=== PATIENT | male | born 1975 | race Caucasian/White ===

== ENCOUNTER 2017-09-21 18:21 | Emergency (ER) | payer OTHER ==
[~2017-09-21] VITALS: Ht 170.2 cm; Wt 114.3 kg
[2017-09-21 18:24] VITALS: TEMP 36.8
[2017-09-21] MEDS ORDERED: SODIUM CHLORIDE 0.9% 1000ML 1,000 ML IV STA (18:36)
[2017-09-21] MEDS ORDERED: ONDANSETRON INJ 2 MG/ML 2 ML VIAL IV STA (18:36)
[2017-09-21 18:45] VITALS: Ht 170.2 cm; Wt 114.3 kg
[2017-09-21 18:51] LABS: BASO % 0.3 %; BASO ABS # 0.05 K/uL (0-0.2); EOS % 1.4 %; HEMATOCRIT 44.1 % (42-52); HEMOGLOBIN 15.6 g/dL (14.0-18.0); IG# 0.04 K/uL (0.00-0.02); LYMPH % 25.4 %; LYMPH ABS # 3.64 K/uL (1.2-3.4); MEAN CELL VOLUME 86.3 fL (80-100); MEAN CORPUSCULAR HEMOGLOBIN 30.5 pg (25-34); MEAN CORPUSCULAR HGB CONC 35.4 g/dl (32-36); MEAN PLATELET VOLUME 9.5 fL (7.4-10.4); MONO ABS # 0.71 K/uL (0.11-0.59); NEUT % 67.6 %; PLATELET COUNT 369 K/uL (130-400); RED CELL DISTRIBUTION WIDTH CV 13.7 % (11.5-14.5); RED CELL DISTRIBUTION WIDTH SD 42.7 fL (36.4-46.3); WHITE BLOOD COUNT 14.34 K/uL (4.8-10.8)
[2017-09-21 19:06] VITALS: O2SAT 98
--- NOTE | 2017-09-21 19:09 | DIAGNOSTIC IMAGING REPORT ---
ABD/PELVIS NO IV OR ORAL CONT CT DOSE: 1473.74 mGy.cm HISTORY: Pain flank pain TECHNIQUE: Multiaxial CT images of the abdomen and pelvis were performed without contrast. A dose lowering technique was utilized adhering to the principles of ALARA. COMPARISON STUDY: 09/18/2015 FINDINGS: Lung bases are clear. Liver spleen and pancreas are grossly unremarkable. No evidence for gallbladder distention. Left kidney is negative for hydronephrosis. There is an 8 x 14 mm calcification within the right renal pelvis. There is slight fullness of the right renal collecting system. There is no evidence for an obstructing calculus within the ureters. Bowel pattern is nonobstructive. Appendix is normal. IMPRESSION: 1. Minimally and/or nonobstructing calculus within the right renal pelvis measuring 8 x 14 mm. 2. Study of the abdomen and pelvis is otherwise negative. The above report was generated using voice recognition software. It may contain grammatical, syntax or spelling errors. Electronically signed by: Jerson Ojeda M.D. 09/21/2017 7:06 PM Dictated Date/Time: 09/21/2017 7:03 PM
[2017-09-21 19:22] LABS: ALBUMIN 3.9 gm/dl (3.4-5.0); ALKALINE PHOSPHATASE 100 U/L (45-117); ALT/SGPT 37 U/L (12-78); AST/SGOT 19 U/L (15-37); BLOOD UREA NITROGEN 17 mg/dl (7-18); CALCIUM 8.5 mg/dl (8.5-10.1); CARBON DIOXIDE 26 mmol/L (21-32); CREATININE 1.03 mg/dl (0.60-1.40); GLUCOSE 109 mg/dl (70-99); LIPASE 145 U/L (73-393); POTASSIUM 3.7 mmol/L (3.5-5.1); SODIUM 137 mmol/L (136-145); TOTAL PROTEIN 7.8 gm/dl (6.4-8.2)
[2017-09-21] MEDS ORDERED: TRAZ100T29 PO (19:32)
[2017-09-21] MEDS ORDERED: FURO-85 PO (19:32)
[2017-09-21] MEDS ORDERED: LISI-461 PO (19:32)
[2017-09-21] MEDS ORDERED: IBUP-103 PO (19:32)
[2017-09-21] MEDS ORDERED: VENL150C56 PO (19:32)
[2017-09-21] MEDS ORDERED: CEFDINIR 300 MG CAP PO STA (19:52)
--- NOTE | 2017-09-21 19:52 | DIAGNOSTIC IMAGING REPORT ---
CHEST ONE VIEW PORTABLE CLINICAL HISTORY: EVALUATE ALTERED MENTAL STATUS/WEAKNESS COMPARISON STUDY: No previous studies for comparison. FINDINGS: The bones soft tissues and hemidiaphragms are normal. The cardiomediastinal silhouette is normal. The lungs are clear. The pulmonary vasculature is normal. IMPRESSION: Negative chest. The above report was generated using voice recognition software. It may contain grammatical, syntax or spelling errors. Electronically signed by: Jerson Ojeda M.D. 09/21/2017 7:51 PM Dictated Date/Time: 09/21/2017 7:51 PM
[2017-09-21 19:53] VITALS: BP 145/90; PULSE 88; O2SAT 95
[2017-09-21] MEDS ORDERED: CEFD300C2 PO (20:00)
[2017-09-21] MEDS ORDERED: OMEP20CA9 PO (20:01)
--- NOTE | 2017-09-21 21:34 | EMERGENCY ROOM VISIT NOTE ---
History Report prepared by Juarez: Cata Smart Under the Supervision of: Dr. Troy Sheriff D.O. First contact with patient: 18:25 Chief Complaint: GI ASSESSMENT Stated Complaint: BLEEDING IN STOOL,STOMACH CRAMPS,TROUBLE URINATING History of Present Illness The patient is a 42 year old male who presents to the Emergency Room with complaints of an episode of hematochezia starting yesterday. The patient states that he has been having melena for the past 3 days. He reports that yesterday he started having hematochezia. He notes that he has had this before, but it was from hemorrhoids. The patient complains of back pain, difficulty urinating, dizziness, and abdominal pain. He notes that the pain is intermittently worse, but is always there. He notes that he occasionally takes Tylenol and Advil, but denies taking Ibuprofen. He notes that he took Pepto Bismol yesterday. He states that he has had a colonoscopy in the past that had polyps present. The patient denies the use of blood thinners and ever having a endoscopy done. Source of History: patient Onset: yesterday Position: abdomen Quality: other (hematochezia) Timing: other (episode) Associated Symptoms: + abdominal pain, + back pain, + melena, + urinary symptoms Note: The patient complains of dizziness. Review of Systems See HPI for pertinent positives & negatives. A total of 10 systems reviewed and were otherwise negative. Past Medical & Surgical Medical Problems: (1) Anxiety (2) CHF (congestive heart failure) (3) Depression (4) Diabetes (5) HTN (hypertension) (6) Panic disorder Family History Patient reports no known family medical history. Social History Smoking Status: Current Every Day Smoker Smokeless Tobacco Use: Yes Alcohol Use: occasionally Marital Status: Housing Status: lives with family Occupation Status: employed Current/Historical Medications Scheduled Cefdinir (Omnicef), 300 MG PO Q12H Furosemide (Lasix), 1 TAB PO DAILY Lisinopril (Zestril), 10 MG PO DAILY Omeprazole (Prilosec), 20 MG PO DAILY Trazodone Hcl (Trazodone), 100 MG PO HS Venlafaxine Hcl (Effexor Extended Rel), 150 MG PO DAILY Scheduled PRN Ibuprofen Tab (Advil), 400 MG PO TID PRN for Pain Allergies Coded Allergies: BEE STING (Unverified Allergy, Unknown, hives, , 09/02/17) Penicillins (Verified Allergy, Unknown, 09/02/17) Physical Exam Vital Signs Date Time Temp Pulse Resp B/P (MAP) Pulse Ox O2 Delivery O2 Flow Rate FiO2 09/21/17 19:53 88 18 145/90 95 Room Air 09/21/17 19:40 90 09/21/17 19:06 98 Room Air 09/21/17 19:06 98 Room Air 09/21/17 18:24 36.8 101 20 148/90 98 Room Air Physical Exam GENERAL: Patient is awake, alert, and in no acute distress. Patient is resting comfortably and showing no signs of anxiety EYES: The conjunctivae are clear. The pupils are round and reactive. EARS, NOSE, MOUTH AND THROAT: The nose is without any evidence of any deformity. Mucous membranes are moist. Tongue is midline NECK: The neck is nontender and supple. RESPIRATORY: Normal respiratory effort is noted. There is no evidence of wheezing rhonchi or rales to auscultation. CARDIOVASCULAR: Tachycardic rate and regular rhythm noted. No definite murmur noted to auscultation. GASTROINTESTINAL: The abdomen is soft. Bowel sounds are present in all quadrants. Abdomen is nontender. Rectal exam revealed light brown stool that was heme negative. BACK: No midline tenderness or or step-off noted range of motion in flexion extension as well as rotation no signs of muscle spasm noted. MUSCULOSKELETAL/EXTREMITIES: There is no evidence of gross deformity. Full range of motion is noted in the hips and shoulders. SKIN: There is no obvious evidence of any rash. There are no petechiae, pallor or cyanosis noted. Trace pedal edema. NEUROLOGIC: Patient is awake alert and oriented x3. Medical Decision & Procedures ER Provider Diagnostic Interpretation: Radiology results as stated below per my review and radiologist interpretation: CHEST ONE VIEW PORTABLE CLINICAL HISTORY: EVALUATE ALTERED MENTAL STATUS/WEAKNESS COMPARISON STUDY: No previous studies for comparison. FINDINGS: The bones soft tissues and hemidiaphragms are normal. The cardiomediastinal silhouette is normal. The lungs are clear. The pulmonary vasculature is normal. IMPRESSION: Negative chest. The above report was generated using voice recognition software. It may contain grammatical, syntax or spelling errors. Electronically signed by: Jerson Ojeda M.D. 09/21/2017 7:51 PM Dictated Date/Time: 09/21/2017 7:51 PM ABD/PELVIS NO IV OR ORAL CONT CT DOSE: 1473.74 mGy.cm HISTORY: Pain flank pain TECHNIQUE: Multiaxial CT images of the abdomen and pelvis were performed without contrast. A dose lowering technique was utilized adhering to the principles of ALARA. COMPARISON STUDY: 09/18/2015 FINDINGS: Lung bases are clear. Liver spleen and pancreas are grossly unremarkable. No evidence for gallbladder distention. Left kidney is negative for hydronephrosis. There is an 8 x 14 mm calcification within the right renal pelvis. There is slight fullness of the right renal collecting system. There is no evidence for an obstructing calculus within the ureters. Bowel pattern is nonobstructive. Appendix is normal. IMPRESSION: 1. Minimally and/or nonobstructing calculus within the right renal pelvis measuring 8 x 14 mm. 2. Study of the abdomen and pelvis is otherwise negative. The above report was generated using voice recognition software. It may contain grammatical, syntax or spelling errors. Electronically signed by: Jerson Ojeda M.D. 09/21/2017 7:06 PM Dictated Date/Time: 09/21/2017 7:03 PM Laboratory Results 09/21/17 18:38 Red Blood Count 5.11, Mean Corpuscular Volume 86.3, Mean Corpuscular Hemoglobin 30.5, Mean Corpuscular Hemoglobin Concent 35.4, Mean Platelet Volume 9.5, Neutrophils (%) (Auto) 67.6, Lymphocytes (%) (Auto) 25.4, Monocytes (%) (Auto) 5.0, Eosinophils (%) (Auto) 1.4, Basophils (%) (Auto) 0.3, Neutrophils # (Auto) 9.70, Lymphocytes # (Auto) 3.64, Monocytes # (Auto) 0.71, Eosinophils # (Auto) 0.20, Basophils # (Auto) 0.05 09/21/17 18:38 Test 09/21/17 18:38 09/21/17 18:49 White Blood Count 14.34 K/uL (4.8-10.8) Red Blood Count 5.11 M/uL (4.7-6.1) Hemoglobin 15.6 g/dL (14.0-18.0) Hematocrit 44.1 % (42-52) Mean Corpuscular Volume 86.3 fL (80-100) Mean Corpuscular Hemoglobin 30.5 pg (25-34) Mean Corpuscular Hemoglobin Concent 35.4 g/dl (32-36) Platelet Count 369 K/uL (130-400) Mean Platelet Volume 9.5 fL (7.4-10.4) Neutrophils (%) (Auto) 67.6 % Lymphocytes (%) (Auto) 25.4 % Monocytes (%) (Auto) 5.0 % Eosinophils (%) (Auto) 1.4 % Basophils (%) (Auto) 0.3 % Neutrophils # (Auto) 9.70 K/uL (1.4-6.5) Lymphocytes # (Auto) 3.64 K/uL (1.2-3.4) Monocytes # (Auto) 0.71 K/uL (0.11-0.59) Eosinophils # (Auto) 0.20 K/uL (0-0.5) Basophils # (Auto) 0.05 K/uL (0-0.2) RDW Standard Deviation 42.7 fL (36.4-46.3) RDW Coefficient of Variation 13.7 % (11.5-14.5) Immature Granulocyte % (Auto) 0.3 % Immature Granulocyte # (Auto) 0.04 K/uL (0.00-0.02) Prothrombin Time 10.3 SECONDS (9.0-12.0) Prothromb Time International Ratio 1.0 (0.9-1.1) Activated Partial Thromboplast Time 28.0 SECONDS (21.0-31.0) Partial Thromboplastin Ratio 1.1 Anion Gap 8.0 mmol/L (3-11) Est Creatinine Clear Calc Drug Dose 111.7 ml/min Estimated GFR () 102.6 Estimated GFR (Non- 88.6 BUN/Creatinine Ratio 16.1 (10-20) Calcium Level 8.5 mg/dl (8.5-10.1) Magnesium Level 2.2 mg/dl (1.8-2.4) Total Bilirubin 0.4 mg/dl (0.2-1) Direct Bilirubin 0.1 mg/dl (0-0.2) Aspartate Amino Transf (AST/SGOT) 19 U/L (15-37) Alanine Aminotransferase (ALT/SGPT) 37 U/L (12-78) Alkaline Phosphatase 100 U/L (45-117) Troponin I < 0.015 ng/ml (0-0.045) Total Protein 7.8 gm/dl (6.4-8.2) Albumin 3.9 gm/dl (3.4-5.0) Lipase 145 U/L (73-393) Thyroid Stimulating Hormone (TSH) 1.530 uIu/ml (0.300-4.500) Urine Color DK YELLOW Urine Appearance CLOUDY (CLEAR) Urine pH 6.5 (4.5-7.5) Urine Specific [place] 1.026 (1.000-1.030) Urine Protein 2+ (NEG) Urine Glucose (UA) NEG (NEG) Urine Ketones NEG (NEG) Urine Occult Blood 2+ (NEG) Urine Nitrite NEG (NEG) Urine Bilirubin NEG (NEG) Urine Urobilinogen NEG (NEG) Urine Leukocyte Esterase SMALL (NEG) Urine WBC (Auto) 10-30 /hpf (0-5) Urine RBC (Auto) >30 /hpf (0-4) Urine Hyaline Casts (Auto) >30 /lpf (0-5) Urine Epithelial Cells (Auto) >30 /lpf (0-5) Urine Bacteria (Auto) NEG (NEG) Urine Renal Epithelial Cells /lpf (0-5) Laboratory results per my review. Medications Administered Medications (Trade) Dose Ordered Sig/Eamon Route Start Time Stop Time Status Last Admin Dose Admin Ondansetron HCl (Zofran Inj) 4 mg NOW STAT IV 09/21/17 18:36 09/21/17 18:37 DC 09/21/17 18:53 4 MG Sodium Chloride 1,000 ml @ 999 mls/hr Q1H1M STAT IV 09/21/17 18:36 09/21/17 19:36 DC 09/21/17 18:53 999 MLS/HR Cefdinir (Omnicef Cap) 300 mg ONE STAT PO 09/21/17 19:52 09/21/17 19:53 DC 09/21/17 19:58 300 MG ECG Per My Interpretation Indication: abdominal pain Rate (beats per minute): 93 Rhythm: normal sinus Findings: no ectopy, other (no acute ST segments) Comparison ECG Date: no prior available ED Course 1828: The patient was evaluated in room C9. A complete history and physical examination were performed. 1835: Ordered NSS 1000 ml @ 999 mls/hr IV, Zofran Inj 4 mg IV. 1951: Ordered Cefdinir 300 mg PO. 2007: Upon reevaluation, the patient is resting comfortably. I discussed the results and treatment plan with him. He verbalized agreement of the treatment plan. The patient was discharged home. Medical Decision Differential diagnosis: Etiologies such as diverticulosis, AVM, coagulopathy, colitis, inflammatory bowel disease, malignancy, Marlen-Day tear, esophagitis, peptic ulcer disease , variceal bleed, gastritis, epistaxis, fissure, hemorrhoids, as well as others were entertained. Nursing notes reviewed. The patient is a 42-year-old male who presented to emergency department for rectal bleeding. The patient did not have rectal bleeding on physical exam. He states that he had dark stool but also recently took Pepto-Bismol. He also complained of flank pain. He did have hematuria so CAT scan was obtained which did reveal a rather large stone in the kidney which was partially obstructing. He was feeling much better on subsequent reevaluation. He was encouraged to continue all medications as prescribed. He is also encouraged to drink plenty clear liquids and follow-up with his primary care physician. I also encouraged him to set up an appointment with the primary care physician for soon as possible as the patient does not have a primary care physician yet and is on multiple medications chronically. He was also encouraged to return to the emergency department immediately if symptoms change worsen or the need arises. Medication Reconcilliation Current Medication List: was personally reviewed by me Blood Pressure Screening Patient's blood pressure: Elevated blood pressure Blood pressure disposition: Referred to PCP Impression Primary Impression: Flank pain Additional Impressions: Kidney calculi Hematuria Scribe Attestation The scribe's documentation has been prepared under my direction and personally reviewed by me in its entirety. I confirm that the note above accurately reflects all work, treatment, procedures, and medical decision making performed by me. Departure Information Dispostion Home / Self-Care Prescriptions Omeprazole (PRILOSEC) 20 Mg Cap 20 MG PO DAILY, #30 CAP Prov: Troy Sheriff, DO 09/21/17 Cefdinir (OMNICEF) 300 Mg Cap 300 MG PO Q12H, #14 CAP Prov: Troy Sheriff, DO 09/21/17 Referrals No Doctor, Assigned (PCP) Forms HOME CARE DOCUMENTATION FORM, IMPORTANT VISIT INFORMATION Patient Instructions My [facility] Additional Instructions Continue all medications as prescribed. Continue to use Motrin and Tylenol as directed for pain. Call your family doctor to schedule a follow-up appointment. Drink plenty of clear liquids. Problem Qualifiers
== END 2017-09-21 20:16 | disposition home or self-care (01) ==
LOC: C.EDB 18:24 → C.EDC 20:16
DX: N20.0 Calculus of kidney (principal); R00.0 Tachycardia, unspecified; R10.9 Unspecified abdominal pain; K64.9 Unspecified hemorrhoids; R42 Dizziness and giddiness; F41.8 Other specified anxiety disorders; E11.9 Type 2 diabetes mellitus without complications; I11.0 Hypertensive heart disease with heart failure; I50.9 Heart failure, unspecified; Z79.899 Other long term (current) drug therapy; Z91.030 Bee allergy status; Z88.0 Allergy status to penicillin

== ENCOUNTER 2017-09-24 02:14 | Emergency (ER) | payer OTHER ==
[~2017-09-24] VITALS: Ht 170.2 cm; Wt 117.7 kg
[~2017-09-24 02:14] MED LIST: CEFD300C2 PO; FURO-85 PO; IBUP-103 PO; LISI-461 PO; OMEP20CA9 PO; TRAZ100T29 PO; VENL150C56 PO
[2017-09-24 02:19] VITALS: TEMP 36.8; Ht 170.2 cm; Wt 117.7 kg
[2017-09-24] MEDS ORDERED: SODIUM CHLORIDE 0.9% 1000ML 1,000 ML IV STA (02:29)
[2017-09-24] MEDS ORDERED: MoRPHine SULFATE 10 MG/ML CARP/VIAL IV STA (02:29)
[2017-09-24] MEDS ORDERED: ONDANSETRON INJ 2 MG/ML 2 ML VIAL IV STA (02:29)
--- NOTE | 2017-09-24 02:55 | EMERGENCY ROOM VISIT NOTE ---
History Report prepared by Juarez: Juan Patrick Under the Supervision of: Dr. Jeramy Nagel M.D. First contact with patient: 02:24 Chief Complaint: KIDNEY STONE Stated Complaint: kidney pain,anxiety,can't urinate well History of Present Illness The patient is a 42 year old male who presents to the Emergency Room with complaints of constant trouble urinating that began 5 days ago. Patient adds he has waxing and waning right kidney pain. Patient was seen in the ER 5 days ago for hematochezia which has resolved. He states during the visit he was told he had a kidney stone. Patient adds he has had intermittent chills and fevers. Past medical history includes a right kidney surgery performed in [place]. He denies leg swelling, diarrhea, or vomiting. Patient adds he has been eating and drinking normally. Source of History: patient Onset: 5 days ago Position: back Timing: constant Modifying Factors (Relieving): other (None) Associated Symptoms: + fevers, + chills, No vomiting, No diarrhea Note: Negative leg swelling. Review of Systems See HPI for pertinent positives & negatives. A total of 10 systems reviewed and were otherwise negative. Past Medical & Surgical Medical Problems: (1) Anxiety (2) CHF (congestive heart failure) (3) Depression (4) Diabetes (5) HTN (hypertension) (6) Panic disorder Family History Patient reports no known family medical history. Social History Smoking Status: Current Every Day Smoker Alcohol Use: occasionally Marital Status: Housing Status: lives with family Occupation Status: employed Current/Historical Medications Scheduled Cefdinir (Omnicef), 300 MG PO Q12H Furosemide (Lasix), 1 TAB PO DAILY Lisinopril (Zestril), 10 MG PO DAILY Omeprazole (Prilosec), 20 MG PO DAILY Trazodone Hcl (Trazodone), 100 MG PO HS Venlafaxine Hcl (Effexor Extended Rel), 150 MG PO DAILY Scheduled PRN Ibuprofen Tab (Advil), 400 MG PO TID PRN for Pain Allergies Coded Allergies: BEE STING (Unverified Allergy, Unknown, hives, , 09/24/17) Penicillins (Verified Allergy, Unknown, 09/24/17) Physical Exam Vital Signs Date Time Temp Pulse Resp B/P (MAP) Pulse Ox O2 Delivery O2 Flow Rate FiO2 09/24/17 04:15 92 18 122/78 95 Room Air 09/24/17 02:19 36.8 97 18 159/88 94 Room Air Physical Exam GENERAL: Patient is uncomfortable appearing and in moderate distress. EYES: No scleral icterus, unremarkable pupils. ENT: Mucous membranes moist, no nasal congestion. NECK: No masses appreciated, no meningismus, trachea is midline. RESPIRATORY: No dyspnea. Clear to auscultation and equal bilaterally. No wheeze , no rhonchi. CARDIOVASCULAR: Regular rate and rhythm. No murmurs, rubs, gallops appreciated. GASTROINTESTINAL: Abdomen soft, nontender, no peritonitis. Bowel sounds positive. No masses appreciated. BACK: No midline tenderness, old scarring in right CVA area with mild right CVA tenderness to palpation EXTREMITIES: Normal motion all extremities, no cyanosis, no edema. NEUROLOGIC: Alert and oriented, no acute motor or sensory deficits, no focal weakness, cranial nerves grossly intact. SKIN: Heavily tattooed, no rash, no jaundice, no diaphoresis. Medical Decision & Procedures ER Provider Diagnostic Interpretation: Per my review and interpretation: ONE VIEW KUB X-RAY: X-ray shows nonspecific bowel gas pattern and no overt evidence of obstruction or kidney stone appreciated. Stat Rad Radiology results and stated below per my review and radiologist interpretation: US RENAL: Comparison CT scan 09/21/17 Shadowing echogenic focus consistent with renal stone in the right renal pelvis measuring 8 mm. This may represent a residual portion of the stone seen on previous CT scan. There is no evidence for obstructive uropathy at this time. The left kidney is unremarkable. The urinary bladder is unremarkable. Radiologist: Carlin Reardon MD Laboratory Results 09/24/17 02:58 Red Blood Count 4.32, Mean Corpuscular Volume 87.7, Mean Corpuscular Hemoglobin 29.9, Mean Corpuscular Hemoglobin Concent 34.0, Mean Platelet Volume 9.8, Neutrophils (%) (Auto) 58.0, Lymphocytes (%) (Auto) 30.9, Monocytes (%) (Auto) 7.2, Eosinophils (%) (Auto) 2.8, Basophils (%) (Auto) 0.9, Neutrophils # (Auto) 5.36, Lymphocytes # (Auto) 2.85, Monocytes # (Auto) 0.66, Eosinophils # (Auto) 0.26, Basophils # (Auto) 0.08 09/24/17 02:58 Test 09/24/17 00:00 09/24/17 02:58 Urine Color YELLOW Urine Appearance CLOUDY (CLEAR) Urine pH 5.0 (4.5-7.5) Urine Specific [place] 1.021 (1.000-1.030) Urine Protein 1+ (NEG) Urine Glucose (UA) NEG (NEG) Urine Ketones NEG (NEG) Urine Occult Blood 3+ (NEG) Urine Nitrite NEG (NEG) Urine Bilirubin NEG (NEG) Urine Urobilinogen NEG (NEG) Urine Leukocyte Esterase TRACE (NEG) Urine WBC (Auto) 5-10 /hpf (0-5) Urine RBC (Auto) >30 /hpf (0-4) Urine Hyaline Casts (Auto) 1-5 /lpf (0-5) Urine Epithelial Cells (Auto) 10-20 /lpf (0-5) Urine Bacteria (Auto) NEG (NEG) White Blood Count 9.23 K/uL (4.8-10.8) Red Blood Count 4.32 M/uL (4.7-6.1) Hemoglobin 12.9 g/dL (14.0-18.0) Hematocrit 37.9 % (42-52) Mean Corpuscular Volume 87.7 fL (80-100) Mean Corpuscular Hemoglobin 29.9 pg (25-34) Mean Corpuscular Hemoglobin Concent 34.0 g/dl (32-36) Platelet Count 316 K/uL (130-400) Mean Platelet Volume 9.8 fL (7.4-10.4) Neutrophils (%) (Auto) 58.0 % Lymphocytes (%) (Auto) 30.9 % Monocytes (%) (Auto) 7.2 % Eosinophils (%) (Auto) 2.8 % Basophils (%) (Auto) 0.9 % Neutrophils # (Auto) 5.36 K/uL (1.4-6.5) Lymphocytes # (Auto) 2.85 K/uL (1.2-3.4) Monocytes # (Auto) 0.66 K/uL (0.11-0.59) Eosinophils # (Auto) 0.26 K/uL (0-0.5) Basophils # (Auto) 0.08 K/uL (0-0.2) RDW Standard Deviation 44.3 fL (36.4-46.3) RDW Coefficient of Variation 13.9 % (11.5-14.5) Immature Granulocyte % (Auto) 0.2 % Immature Granulocyte # (Auto) 0.02 K/uL (0.00-0.02) Anion Gap 8.0 mmol/L (3-11) Est Creatinine Clear Calc Drug Dose 113.5 ml/min Estimated GFR () 102.6 Estimated GFR (Non- 88.6 BUN/Creatinine Ratio 18.3 (10-20) Calcium Level 8.2 mg/dl (8.5-10.1) Total Bilirubin 0.2 mg/dl (0.2-1) Direct Bilirubin < 0.1 mg/dl (0-0.2) Aspartate Amino Transf (AST/SGOT) 17 U/L (15-37) Alanine Aminotransferase (ALT/SGPT) 32 U/L (12-78) Alkaline Phosphatase 97 U/L (45-117) Total Protein 6.6 gm/dl (6.4-8.2) Albumin 3.2 gm/dl (3.4-5.0) Lipase 166 U/L (73-393) Laboratory results as reviewed by me. Medications Administered Medications (Trade) Dose Ordered Sig/Eamon Route Start Time Stop Time Status Last Admin Dose Admin Sodium Chloride 1,000 ml @ 999 mls/hr Q1H1M STAT IV 09/24/17 02:29 09/24/17 03:29 DC 09/24/17 03:03 999 MLS/HR Morphine Sulfate (MoRPHine SULFATE INJ) 10 mg NOW STAT IV 09/24/17 02:29 09/24/17 02:31 DC 09/24/17 03:01 10 MG Ondansetron HCl (Zofran Inj) 4 mg NOW STAT IV 09/24/17 02:29 09/24/17 02:31 DC 09/24/17 03:01 4 MG Lorazepam (Ativan Inj) 1 mg NOW STAT IV 09/24/17 03:08 09/24/17 03:09 DC 09/24/17 03:13 1 MG ED Course 1443: The patient was evaluated in room B10. A complete history and physical exam was performed. 0330: I reevaluated the patient. He is currently at US. Medical Decision Differential: Renal Colic, Pyelonephritis, Hydronephrosis, Appendicitis, Diverticulitis, Retroperitoneal Bleed/Infection, Aortic Pathology, MSK, Neurologic Pathology, amongst other pathologies entertained. Anxious 42 yr old male arrives complaining of right flank pain. He was recently diagnosed with stone in right kidney and since notes pain there. He has blood in urine but otherwise labs looking OK. UA is a bit contaminated but doesn't seems consistent with infection and given just finished course Omnicef this seems even less likely. He feels only a bit better with pain meds but after IV Ativan vastly improved. US without hydro of right kidney. KUB I don' t appreciate stone though could be hidden in bowel gas. He does not have surgical abdomen and I think repeat CT after just having one last week would be excessive. He is feeling much better and eating ice chips. Admits anxiety that sometimes brings him to ED. Recently moved back here from [place]. He tells me he will call to have PCP appointment on Tuesday and he will call urologist for follow up. Could be he is having a bit of ball/valve phenomenon on stone in kidney thus will give very limited to go oxy IR. Reviewed symptoms requiring RTED. Impression Primary Impression: Right flank pain Additional Impressions: Hematuria Stone in kidney Scribe Attestation The scribe's documentation has been prepared under my direction and personally reviewed by me in its entirety. I confirm that the note above accurately reflects all work, treatment, procedures, and medical decision making performed by me. Departure Information Dispostion Home / Self-Care Referrals Darell Bernabe, II., DO Patient Instructions My [facility] Additional Instructions Currently there is no clear evidence of a stone being stuck causing your pain though there is a stone in your kidney which may be periodically getting stuck causing discomfort. Rest and keep well hydrated. Use Tylenol and Motrin as needed for discomfort. Follow up with Urology for evaluation of the stone and the blood in your urine. Return if worsening pain, fevers, vomiting, or other concerns. We are always here to help. You have received a narcotic pain medication. These medications may cause drowsiness and should not be used with other sedative medications. Do not drive , drink alcohol, perform dangerous activities, nor make important decisions after taking these medications. moth exterminator use or inappropriate use may lead to addiction. Problem Qualifiers
[2017-09-24] MEDS ORDERED: LORAZEPAM 2 MG/ML 1 ML VIAL IV STA (03:08)
[2017-09-24 03:10] LABS: BASO % 0.9 %; BASO ABS # 0.08 K/uL (0-0.2); EOS % 2.8 %; EOS ABS # 0.26 K/uL (0-0.5); HEMATOCRIT 37.9 % (42-52); HEMOGLOBIN 12.9 g/dL (14.0-18.0); IG# 0.02 K/uL (0.00-0.02); LYMPH % 30.9 %; LYMPH ABS # 2.85 K/uL (1.2-3.4); MEAN CELL VOLUME 87.7 fL (80-100); MEAN CORPUSCULAR HEMOGLOBIN 29.9 pg (25-34); MEAN PLATELET VOLUME 9.8 fL (7.4-10.4); MONO % 7.2 %; MONO ABS # 0.66 K/uL (0.11-0.59); NEUT ABS # 5.36 K/uL (1.4-6.5); PLATELET COUNT 316 K/uL (130-400); RED CELL DISTRIBUTION WIDTH CV 13.9 % (11.5-14.5); RED CELL DISTRIBUTION WIDTH SD 44.3 fL (36.4-46.3); WHITE BLOOD COUNT 9.23 K/uL (4.8-10.8)
[2017-09-24 03:35] LABS: ALBUMIN 3.2 gm/dl (3.4-5.0); ALKALINE PHOSPHATASE 97 U/L (45-117); ALT/SGPT 32 U/L (12-78); AST/SGOT 17 U/L (15-37); BLOOD UREA NITROGEN 19 mg/dl (7-18); CALCIUM 8.2 mg/dl (8.5-10.1); CARBON DIOXIDE 22 mmol/L (21-32); CREATININE 1.03 mg/dl (0.60-1.40); GLUCOSE 122 mg/dl (70-99); LIPASE 166 U/L (73-393); POTASSIUM 3.9 mmol/L (3.5-5.1); SODIUM 140 mmol/L (136-145); TOTAL PROTEIN 6.6 gm/dl (6.4-8.2)
[2017-09-24 04:15] VITALS: BP 122/78; PULSE 92; O2SAT 95
[2017-09-24] MEDS ORDERED: OXYCODONE IR HOME PACK PO ONE (04:45)
--- NOTE | 2017-09-24 07:02 | DIAGNOSTIC IMAGING REPORT ---
ULTRASOUND KIDNEYS AND BLADDER CLINICAL HISTORY: Right flank pain. COMPARISON STUDY: Abdominal CT dated 09/21/2017. TECHNIQUE: Real-time, grayscale, and color flow sonography of the kidneys and bladder is performed. Images are reviewed in the transverse and longitudinal planes. FINDINGS: Kidneys: The kidneys are normal in size and echotexture. The right kidney measures 13.6 x 6.5 x 7.3 cm and the left kidney measures 14.1 x 7 0.1, 9.3 cm. There is no hydronephrosis. An 8 mm calculus is identified within the right renal pelvis. There is no sonographic evidence of contour deforming renal mass lesion. No perinephric fluid is identified. Bladder: The bladder is normal in appearance. Bilateral ureteral jets were seen. Upper abdomen: Survey images of the liver show evidence of hepatomegaly and hepatic steatosis. IMPRESSION: 1. The kidneys are normal in size and without hydronephrosis. 2. The bladder is normal as imaged. 3. An 8 mm calculus is identified in the right renal pelvis. 4. Hepatomegaly and hepatic steatosis. Electronically signed by: Hood Lopes M.D. 09/24/2017 7:01 AM Dictated Date/Time: 09/24/2017 6:59 AM
--- NOTE | 2017-09-24 09:22 | DIAGNOSTIC IMAGING REPORT ---
KUB CLINICAL HISTORY: Right flank pain. FINDINGS: 3 AP supine abdominal radiographs are correlated with abdominal CT dated 09/21/2017. The examination is degraded by large body habitus. There is a nonobstructed abdominal bowel gas pattern. No evidence of intraperitoneal free air is seen on these supine images. The patient's known right renal calculus is not visualized due to overlying bowel contents. No renal calculi are clearly identified on these images. Post laminectomy change and spinal fusion is seen at L5-S1. The bony structures appear intact. IMPRESSION: 1. No renal calculi are identified on today's examination. 2. The patient's known right renal calculus is not visualized due to overlying bowel contents. Electronically signed by: Hood Lopes M.D. 09/24/2017 9:21 AM Dictated Date/Time: 09/24/2017 9:19 AM
== END 2017-09-24 04:40 | disposition home or self-care (01) ==
LOC: C.EDB 02:15
DX: N20.0 Calculus of kidney (principal); F41.9 Anxiety disorder, unspecified; I11.0 Hypertensive heart disease with heart failure; I50.9 Heart failure, unspecified; F32.9 Major depressive disorder, single episode, unspecified; E11.9 Type 2 diabetes mellitus without complications; Z91.030 Bee allergy status; Z88.0 Allergy status to penicillin